=== PATIENT | male | born 1980 | race Caucasian/White ===

== ENCOUNTER 2016-10-20 09:09 | Emergency (ER) | payer OTHER ==
--- NOTE | ~2016-10-20 | CR141 ---
[facility] A Service of [facility] RADIOLOGY TEXT RESULTS PATIENT: JIA PAYNE LOCATION: SED : [birth year] UNIT #: [id number] AGE: [address]: Bradley Thao MD SEX: M ORDER DR: [id number] [address] [address] [id number] E MR#: [id number] Acc #: [id number] NAME: JIA PAYNE : 1980 SEX: M STUDY DATE/TIME: 10/20/2016 09:19 UNIT: SED ROOM: STUDY DESCRIPTION: CR Hand Min 3 Views Lt Attending Physician: Bradley Thao M.D. Ordering Physician: Bradley Thao M.D. Primary Care Physician: Primary Care Physician No MEDICAL IMAGING REPORT This report is preliminary unless electronic signature is present. EXAM Left hand 3 views 10/20/2016 0919 hours HISTORY 36-year-old man fell off a porch yesterday with trauma to the thumb and left hand on landing. COMPARISON Left index finger 05/21/2011. FINDINGS AP, lateral and oblique views demonstrate normal bone density. The distal radius and ulna and carpal bones are intact. Previous oblique fracture through the proximal phalanx of the index finger has healed with some deformity. No definite fracture is seen at the thumb. There is a tiny ossicle at the proximal aspect of the proximal phalanx adjacent to the sesamoid bone felt to be an accessory ossicle rather than an avulsion fracture although a fracture cannot be completely excluded. Correlate with the site of patient's tenderness. IMPRESSION 1. No definite acute fracture seen. There is a 2 mm ossicle seen at the proximal aspect of the proximal phalanx of the thumb at the metacarpophalangeal joint measuring only 2 mm. This is adjacent to the sesamoid bone and is felt more likely to represent an accessory ossicle than an avulsion fracture. Correlate with site of patient's discomfort, however. 2. Old oblique fracture through the proximal phalanx of the index finger has healed with some deformity. Dictated by... [facility] A Service of [facility] RADIOLOGY TEXT RESULTS PATIENT: JIA PAYNE LOCATION: SED : [birth year] UNIT #: [id number] AGE: [address]: Bradley Thao MD SEX: M ORDER DR: Gauri Hood M.D. THIS IS AN ELECTRONICALLY VERIFIED REPORT Gauri Hood M.D. at 10/20/2016 4:29 PM CHANCE/ana TD: 10/20/2016 10:33 JOB #: [id number] MEDICAL IMAGING REPORT Page 1 of 1
[~2016-10-20 09:09] MED LIST: AMOXICILLIN PO; AMOXICILLIN500 M1 PO; AURALGAN EAR DR14 ML OT; CILOXAN5 ML OP; IBUPROFEN PO; IBUPROFEN400 MG PO; NAPROXEN PO; NO MEDICATIONS; PEN-VEE K PO; PENICILLIN V P500 MG PO; ULTRAM PO; VICODIN 5/1 TAB 5/50 PO; VICODIN 5/500 T1 TAB PO; VOLTAREN50 MG PO
== END 2016-10-20 10:15 | disposition home or self-care (01) ==
LOC: SED 09:09
DX: S56.312A Strain of extensor or abductor muscles, fascia and tendons of left thumb at forearm level, initial encounter (principal); F17.200 Nicotine dependence, unspecified, uncomplicated; W19.XXXA Unspecified fall, initial encounter
CPT/HCPCS: 29125; 73130; 99283

== ENCOUNTER 2016-12-02 09:28 | Emergency (ER) | payer OTHER ==
--- NOTE | ~2016-12-02 | CR63 ---
[facility]. [facility] A Service of [facility] & [facility] RADIOLOGY TEXT RESULTS PATIENT: JIA PAYNE LOCATION: SED : [birth year] UNIT #: [id number] AGE: [address]: Tania Barrera MD SEX: M ORDER DR: [id number] [place] [id number] E MR#: [id number] Acc #: [id number] NAME: JIA PAYNE : 1980 SEX: M STUDY DATE/TIME: 12/02/2016 9:56 UNIT: SED ROOM: STUDY DESCRIPTION: CR Chest 2 View Attending Physician: Tania Barrera M.D. Ordering Physician: Tania Barrera M.D. Primary Care Physician: No Primary Care Physician MEDICAL IMAGING REPORT This report is preliminary unless electronic signature is present. EXAM Two-view chest, 12/02/2016. HISTORY 36-year-old male with chest pain status post fall last night. Shortness of air. COMPARISON Chest, 07/01/2008. FINDINGS Two views of the chest demonstrate clear lungs. No pleural effusion or pneumothorax. Heart size and mediastinum within normal limits. Pulmonary vasculature unremarkable. No acute bony abnormality. IMPRESSION No acute chest findings. Dictated by... Michele Thurman M.D. THIS IS AN ELECTRONICALLY VERIFIED REPORT Michele Thurman M.D. at 12/03/2016 10:05 AM BEATRIZ/jeannette TD: 12/02/2016 14:52 JOB #: [id number] MEDICAL IMAGING REPORT Page 1 of 1
== END 2016-12-02 10:17 | disposition home or self-care (01) ==
LOC: SED 09:28
DX: S20.211A Contusion of right front wall of thorax, initial encounter (principal); F17.200 Nicotine dependence, unspecified, uncomplicated; Y92.9 Unspecified place or not applicable; W01.0XXA Fall on same level from slipping, tripping and stumbling without subsequent striking against object, initial encounter
CPT/HCPCS: 71020; 99284